=== PATIENT | male | born 1985 ===

== ENCOUNTER 2023-07-01 00:44 | Emergency (ER) | payer OTHER ==
[~2023-07-01] VITALS: Ht 185.4 cm; Wt 108.9 kg
[2023-07-01 00:54] VITALS: BP 176/84
== END 2023-07-01 04:07 | disposition home or self-care (01) ==
LOC: ER 00:44
DX: G47.00 Insomnia, unspecified (principal); R44.0 Auditory hallucinations; R44.1 Visual hallucinations; F17.200 Nicotine dependence, unspecified, uncomplicated; Z88.8 Allergy status to other drugs, medicaments and biological substances
CPT/HCPCS: 96374; 99283-25; J1790

== ENCOUNTER 2024-09-21 20:19 | Emergency (ER) | payer OTHER ==
[~2024-09-21] VITALS: Ht 185.4 cm; Wt 90.7 kg
[2024-09-21 21:29] LABS: BASOPHILS ABSOLUTE AUTO 0.06 K/mm3 (0.00-0.23); BASOPHILS PERCENT AUTO 1 % (0-2); EOSINOPHILS PERCENT AUTO 2 % (0-6); Hematocrit 43.5 % (37.0-53.0); Hemoglobin 14.3 g/dL (13.5-17.5); IMMATURE GRAN ABSOLUTE AUTO 0.06 K/mm3 (0.00-0.10); IMMATURE GRAN PERCENT AUTO 1 % (0-1); LYMPHOCYTES ABSOLUTE AUTO 2.86 K/mm3 (0.84-5.20); LYMPHOCYTES PERCENT AUTO 23 % (21-46); MONOCYTES ABSOLUTE AUTO 0.94 K/mm3 (0.16-1.47); MONOCYTES PERCENT AUTO 8 % (4-13); Mean Corpuscular HGB 28.8 pg (26.0-34.0); Mean Corpuscular HGB Conc 32.9 g/dL (31.5-36.5); Mean Corpuscular Volume 88 fL (80-100); Mean Platelet Volume 8.5 fL (9.1-12.4); NEUTROPHILS ABSOLUTE AUTO 8.29 K/mm3 (1.96-9.15); NEUTROPHILS PERCENT AUTO 66 % (41-73); Platelet Count 358 K/mm3 (150-400); RDW Coefficient Variation 15.4 % (11.7-14.2); RDW Standard Deviation 48.6 fL (35.1-46.3); Red Blood Cell Count 4.96 M/mm3 (4.30-5.90); White Blood Cell Count 12.51 K/mm3 (4.00-11.30)
[2024-09-21 22:03] LABS: Albumin, Blood 4.2 g/dL (3.4-5.0); Albumin/Globulin Ratio 1.2 (0.8-1.8); Bilirubin, Total 0.4 mg/dL (0.1-1.0); Bun/Creatinine Ratio 25.1 (12.0-20.0); Calcium, Blood 9.4 mg/dL (8.5-10.1); Creatinine, Blood 0.68 mg/dL (0.60-1.20); Globulin, Blood 3.6 g/dL (2.2-4.0); Potassium, Blood 3.9 mmol/L (3.5-5.5); Total Protein, Blood 7.8 g/dL (6.4-8.2)
[2024-09-21 22:59] LABS: Source, Urine Clean Catch
[2024-09-21 23:05] LABS: Bilirubin, Urine Neg (Neg); Blood, Urine Neg (Neg); Glucose Qualitative, Urine Neg (Neg); Ketones, Urine Neg (Neg); Leukocyte Esterase, Urine Neg (Neg); Nitrite, Urine Neg (Neg); Protein, Urine Neg (Neg); Urobilinogen, Urine NORM (Normal)
[2024-09-21 23:20] LABS: Appearance, Urine Clear (Clear); Color, Urine Yellow (P-Yellow)
[2024-09-21 23:40] VITALS: BP 137/95
[2024-09-21] MEDS ORDERED: ALPRAZOLAM0.5 M1 PO (23:43)
[2024-09-21] MEDS ORDERED: HYDHCL25 PO (23:44)
[2024-09-21] MEDS ORDERED: LORAZEPAM0.5 MG PO (23:45)
[2024-09-22] MEDS ORDERED: Amoxicillin/Clavulanate K 875 MG Tab PO ONE (00:05)
[2024-09-22] MEDS ORDERED: AMOCLA875 PO (00:06)
[2024-09-22] MEDS ORDERED: MICOTRIN AC85 G4 TOP (00:06)
== END 2024-09-22 00:30 | disposition home or self-care (01) ==
LOC: ER 20:19
PROVIDERS: Emergency Medicine
DX: B35.4 Tinea corporis (principal); K04.7 Periapical abscess without sinus; K02.9 Dental caries, unspecified; R10.9 Unspecified abdominal pain; Z88.8 Allergy status to other drugs, medicaments and biological substances; F17.200 Nicotine dependence, unspecified, uncomplicated
CPT/HCPCS: 80053; 81003; 85025; 99284; A9270

== ENCOUNTER 2024-09-23 11:25 | Emergency (ER) | payer OTHER ==
[~2024-09-23] VITALS: Ht 185.4 cm; Wt 85.3 kg
[~2024-09-23 11:25] MED LIST: ALPRAZOLAM0.5 M1 PO; AMOCLA875 PO; HYDHCL25 PO; LORAZEPAM0.5 MG PO; MICOTRIN AC85 G4 TOP
[2024-09-23 12:07] VITALS: BP 147/105
== END 2024-09-23 12:24 | disposition home or self-care (01) ==
LOC: ER 11:25
DX: R20.2 Paresthesia of skin (principal); F17.200 Nicotine dependence, unspecified, uncomplicated; Z86.59 Personal history of other mental and behavioral disorders; Z79.899 Other long term (current) drug therapy; Z88.8 Allergy status to other drugs, medicaments and biological substances
CPT/HCPCS: 99281